=== PATIENT | male | born 1945 | race Caucasian/White ===

== ENCOUNTER → 2024-05-08 09:55 | Outpatient (REF) | payer MEDICARE, OTHER, SELFPAY | LOC: PAVMRI 09:55 | PROVIDERS: ATTENDING PHYSICIAN Orthopaedic Surgery; FAMILY PHYSICIAN Family Medicine | DX: M25.561 Pain in right knee (principal) | CPT/HCPCS: 73721 ==

== ENCOUNTER → 2024-06-02 14:43 | Outpatient (REF) | payer MEDICARE, OTHER, SELFPAY | LOC: HWRCS 14:43 | PROVIDERS: ATTENDING PHYSICIAN Internal Medicine Cardiovascular Disease; FAMILY PHYSICIAN Family Medicine | DX: I73.9 Peripheral vascular disease, unspecified (principal); Z78.9 Other specified health status; I10 Essential (primary) hypertension; I35.1 Nonrheumatic aortic (valve) insufficiency | CPT/HCPCS: 93306 ==

== ENCOUNTER 2024-06-18 13:11 | Outpatient (RCR) | payer MEDICARE, OTHER, SELFPAY | END 2024-06-18 23:59 | disposition home or self-care (01) | LOC: RPT 13:11 | PROVIDERS: ATTENDING PHYSICIAN Physician Assistant Medical; FAMILY PHYSICIAN Family Medicine | DX: M17.11 Unilateral primary osteoarthritis, right knee (principal); Z73.6 Limitation of activities due to disability; R26.89 Other abnormalities of gait and mobility | CPT/HCPCS: 97110; 97140; 97162 ==

== ENCOUNTER 2024-06-25 13:04 | Outpatient (RCR) | payer MEDICARE, OTHER, SELFPAY | END 2024-07-05 10:52 | disposition home or self-care (01) | LOC: RPT 13:04 | PROVIDERS: ATTENDING PHYSICIAN Physician Assistant Medical; FAMILY PHYSICIAN Family Medicine | DX: M17.11 Unilateral primary osteoarthritis, right knee (principal); Z73.6 Limitation of activities due to disability; R26.89 Other abnormalities of gait and mobility | CPT/HCPCS: 97010; 97110; 97140 ==

== ENCOUNTER → 2024-08-25 07:57 | Outpatient (REF) | payer MEDICARE, OTHER, SELFPAY | LOC: RAD 07:57 | PROVIDERS: ATTENDING PHYSICIAN Nurse Practitioner Adult Health; FAMILY PHYSICIAN Family Medicine | DX: E27.8 Other specified disorders of adrenal gland (principal) | CPT/HCPCS: 74178; Q9967 ==